=== PATIENT | male | born 1985 | race Caucasian/White ===

== ENCOUNTER 2021-04-11 02:56 | Emergency (ER) | payer OTHER | END 2021-04-11 04:35 | disposition home or self-care (01) | LOC: ER1 02:56 | DX: S66.911A Strain of unspecified muscle, fascia and tendon at wrist and hand level, right hand, initial encounter (principal); S50.11XA Contusion of right forearm, initial encounter; W19.XXXA Unspecified fall, initial encounter | CPT/HCPCS: 73090; 73110; 99283 ==